=== PATIENT | female | born 1980 | race Caucasian/White ===

== ENCOUNTER → 2017-07-25 18:33 | Outpatient (CLI) | payer MEDICAID ==
[2015-07-13 07:56] VITALS: BMI 28.3
[~2017-07-25 18:33] MED LIST: ABILIFY2 MG PO; BACTROBAN CREAM15 GM TOPICAL; CELEXA20 MG PO; HYDROCODON-ACE1 EAC7 PO; KEFLEX500 MG PO; KLONOPIN0.5 MG PO; NORCO 5/325 TAB1 TA1 PO; PERCOCET 10/3251 TA1 PO; TAMOXIFEN CITRA20 MG PO
== END | disposition home or self-care (01) ==
LOC: D.MAMMO 10:30
DX: C50.919 Malignant neoplasm of unspecified site of unspecified female breast (principal); Z12.31 Encounter for screening mammogram for malignant neoplasm of breast

== ENCOUNTER → 2018-09-10 16:28 | Outpatient (CLI) | payer MEDICAID ==
[2015-07-13 07:56] VITALS: BMI 28.3
== END | disposition home or self-care (01) ==
LOC: D.MAMMO 07-28 13:30
PROVIDERS: ATTEND Internal Medicine Medical Oncology
DX: Z85.3 Personal history of malignant neoplasm of breast (principal)

== ENCOUNTER → 2019-01-15 07:38 | Outpatient (CLI) | payer MEDICAID ==
[2015-07-13 07:56] VITALS: BMI 28.3
== END | disposition home or self-care (01) ==
LOC: D.US 07:38 → D.MAMMO 08:00
PROVIDERS: ATTEND Surgery
DX: C50.212 Malignant neoplasm of upper-inner quadrant of left female breast (principal)